=== PATIENT | female | born 1965 | race Two or more races ===

== ENCOUNTER 2018-08-06 07:22 | Day surgery (SDC) | payer OTHER ==
[2018-08-06] MEDS ORDERED: MIDAZOLAM 1 MG/ML 2 ML INJ ×2 (10:37→10:38)
[2018-08-06] MEDS ORDERED: FENTAnyl 50 MCG/ML VIAL (10:38)
== END 2018-08-06 13:25 | disposition home or self-care (01) ==
LOC: GIL 07:22
DX: Z12.11 Encounter for screening for malignant neoplasm of colon (principal); K64.8 Other hemorrhoids
CPT/HCPCS: 45378; 84703

== ENCOUNTER 2018-09-30 07:07 | Emergency (ER) | payer SELFPAY, OTHER ==
[2018-09-30 08:26] LABS: ADD MAN DIFF? NO
[2018-09-30 08:28] LABS: BASOPHILS % 0.2 % (0.0-2.0); EOSINOPHILS # 0.2 10^3/ul (0.0-0.5); EOSINOPHILS % 3.8 % (0.0-7.0); HEMATOCRIT 42.3 % (37.0-47.0); HEMOGLOBIN 13.9 g/dl (12.0-16.0); LYMPHOCYTES # 1.6 10^3/ul (0.8-2.9); LYMPHOCYTES % 31.4 % (15.0-51.0); MEAN CORPUSCULAR HEMOGLOBIN 29.8 pg (29.0-33.0); MEAN CORPUSCULAR HGB CONC 32.9 g/dl (32.0-37.0); MEAN CORPUSCULAR VOLUME 90.8 fl (82.0-101.0); MEAN PLATELET VOLUME 10.8 fl (7.4-10.4); MONOCYTE # 0.5 10^3/ul (0.3-0.9); MONOCYTES % 10.7 % (0.0-11.0); NEUTROPHIL # 2.7 10^3/ul (1.6-7.5); NEUTROPHILS % 53.7 % (39.0-77.0); PLATELET COUNT 304 10^3/UL (140-415); RED BLOOD COUNT 4.66 10^6/ul (4.20-5.40); RED CELL DISTRIBUTION WIDTH 13.1 % (11.5-14.5)
[2018-09-30] MEDS: ONDANSETRON 4 MG INJ IV (08:31)
[2018-09-30] MEDS: SOD CHLORIDE 0.9% 1,000 ML IV (08:31)
[2018-09-30] MEDS: DICYCLOMINE 20 MG INJ IM (08:31)
[2018-09-30 08:46] LABS: ANION GAP 12 (5-13); BLOOD UREA NITROGEN 17 mg/dl (7-20); CALCIUM 9.4 mg/dl (8.4-10.2); CARBON DIOXIDE 27 mmol/L (21-31); CHLORIDE 107 mmol/L (97-110); CREATININE 0.52 mg/dl (0.44-1.00); Estimated GFR > 60 mL/min (>60); GLUCOSE 95 mg/dl (70-220); SODIUM 146 mmol/L (135-144)
== END 2018-09-30 09:45 | disposition home or self-care (01) ==
LOC: E/R 07:07
DX: R10.13 Epigastric pain (principal); R11.0 Nausea
CPT/HCPCS: 36415; 80048; 85025; 96361; 96372; 96374; 99284-25